=== PATIENT | female | born 1950 | race Caucasian/White ===

== ENCOUNTER → 2016-09-27 | Outpatient (CLI) | payer MEDICARE ==
--- NOTE | 2016-09-28 11:23 | MM ---
Reason for exam: screening (asymptomatic). Last mammogram was performed 1 year and 2 months ago. History: Patient is postmenopausal. Took unspecified hormones for 10 years beginning at age 45. Physical Findings: A clinical breast exam by your physician is recommended on an annual basis and results should be correlated with mammographic findings. MG 3D Screening Mammo W/Cad Bilateral CC and MLO view(s) were taken. Prior study comparison: August 04, 2015, bilateral MG 3d screening mammo w/cad. July 05, 2014, bilateral MG screening mammo w CAD. There are scattered fibroglandular densities. Benign calcifications. No significant changes when compared with prior studies. ASSESSMENT: Benign, BI-RAD 2 RECOMMENDATION: Routine screening mammogram of both breasts in 1 year.
== END | disposition home or self-care (01) ==
LOC: RADMAMWWP 07:44
PROVIDERS: ATTEND Internal Medicine
DX: Z12.31 Encounter for screening mammogram for malignant neoplasm of breast (principal)
CPT/HCPCS: 77063; G0202

== ENCOUNTER → 2017-02-07 | Outpatient (CLI) | payer MEDICARE ==
[2017-02-07 08:50] LABS: Blood Urea Nitrogen 12 mg/dL (7-17); Non-African American GFR(MDRD) >60 (>60 ml/min/1.73 sqM)
--- NOTE | 2017-02-07 11:53 | CT ---
EXAMINATION TYPE: CT abdomen pelvis w con DATE OF EXAM: 02/07/2017 COMPARISON: 03/27/2010 INDICATION: LLQ pain DLP: 583.6 mGycm, Automated exposure control for dose reduction was used. CONTRAST: 100 mL of Omnipaque 300. Study performed with Oral Contrast TECHNIQUE: Axial images were obtained from above the diaphragm to the pubic rami in the axial plane a t 5 mm thick sections. Reconstructed images are reviewed on the computer in the coronal plane. FINDINGS: Limited CT sections are obtained the lung bases. Some minimal linear opacities at the lung bases may be related to some mild compressive atelectasis. Small hiatal hernia is present. Postsurgical change s are within the stomach.. CT ABDOMEN: Liver: Normal Spleen: Normal Pancreas: Mildly atrophic Adrenal glands: The adrenal glands are normal. Gallbladder: Normal Kidneys: No masses are evident. No hydronephrosis is present. There is a 1.2 cm cyst on the mid pos terior right kidney. Delayed images were obtained through the kidneys, which remain unremarkable. Aorta: Normal Retroaortic renal vein may be present. Inferior vena cava: Filter is within the inferior vena cava. CT PELVIS: Loops of bowel within the abdomen and pelvis are normal. Note is made of some bowel surgery withi n the left midabdomen. Oral contrast extends to the descending colon. Loops of bowel distended with o ral contrast appear within normal limits. There is incomplete distention of the sigmoid colon. Divert icular changes without acute diverticulitis is present. Appendix: Normal as visualized. Urinary bladder: Normal. Genitourinary structures: Uterus is not identified. Adnexal regions appear within normal limits. Osseous structures: No suspicious lytic or sclerotic lesions. IMPRESSIONS: 1. Diverticulosis without acute diverticulitis. 2. Right renal cyst.
== END | disposition home or self-care (01) ==
LOC: RADCTMAIN 08:11
PROVIDERS: ATTEND Internal Medicine
DX: N28.1 Cyst of kidney, acquired (principal); K57.90 Diverticulosis of intestine, part unspecified, without perforation or abscess without bleeding
CPT/HCPCS: 82565; 84520; 74177; Q9967

== ENCOUNTER 2018-03-21 10:49 | Day surgery (SDC) | payer MEDICARE ==
[2018-03-16 11:12] VITALS: BMI 30.8
[~2018-03-21 10:49] MED LIST: LACTATED RINGERS 1,000 ML IV SCH; LIDOCAINE 1% 20 ML VIAL (10MG/ML) FOR IV START INTRADERMA PRN; MIDAZOLAM 2 MG/2 ML VIAL IV PRN
[2018-03-21 11:14] VITALS: TEMP 97.4
[2018-03-21] MEDS ORDERED: PROPOFOL 10 MG/ML 20 ML VIAL IV ONE (11:50)
[2018-03-21 12:19] VITALS: RESP 18
--- NOTE | 2018-03-21 12:22 | P.PCN ---
Date of Procedure: 03/21/18 Procedure(s) Performed: Procedure: Esophagogastroduodenoscopy and biopsy. Preoperative diagnosis: Iron deficiency anemia. Postoperative diagnosis: 1. 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 2. Biopsies obtained from the small bowel, gastric remnant and esophagus. Preparation sedation: Was provided by anesthesia. Brief clinical history: The patient is a 67-year-old female who is scheduled for this evaluation because of iron deficiency anemia. The patient had prior Bryan-en-Y gastric bypass surgery. She has no overt of bleeding. Her last colonoscopy was 1-2 years ago. Procedure: With the patient on her left lateral decubitus position and after informed consent and adequate sedation, I passed the Olympus-GIF 160 video upper endoscope through the cricopharyngeus down the esophagus. GE junction was around 35-36 cm from the incisors. The esophagus did not show any obvious erosions, ulcers, strictures or Houston's esophagus. The endoscope was then passed into the gastric remnant as the patient had prior gastric bypass surgery. The endoscope was then passed for a good distance into the small bowel. The suture line was noted and couple sutures were seen. The gastric remnant showed some erythema and friability and there was an erosion or 2 close to the sutures but there was no spontaneous bleeding. Small bowel appeared healthy. All secretions encountered were clear. I obtained multiple biopsies from the small bowel, gastric remnant and esophagus then the endoscope was withdrawn. The patient tolerated the procedure well. Plan: The patient was reassured. Will await biopsy results. It is possible that a significant component of her anemia is related to her bypass surgery and the decrease in iron absorption. A smaller component could be related to her gastritis of the gastric remnant as described. She will follow-up with you as planned and I will be happy to see in the office if the problem persists.
[2018-03-21 12:47] VITALS: BP 127/69; PULSE 49
== END 2018-03-21 13:02 | disposition home or self-care (01) ==
LOC: ORWHC2ENDO 10:49
DX: K29.50 Unspecified chronic gastritis without bleeding (principal); Z98.84 Bariatric surgery status; D50.9 Iron deficiency anemia, unspecified; E07.9 Disorder of thyroid, unspecified; M19.90 Unspecified osteoarthritis, unspecified site; Z79.890 Hormone replacement therapy; Z79.891 Long term (current) use of opiate analgesic; Z91.048 Other nonmedicinal substance allergy status
CPT/HCPCS: 88305; 88342; 88341; 43239; J2704

== ENCOUNTER → 2018-06-12 | Outpatient (CLI) | payer MEDICARE ==
--- NOTE | 2018-06-14 10:48 | MM ---
Reason for exam: screening (asymptomatic). Last mammogram was performed 1 year ago. History: Patient is postmenopausal. Took unspecified hormones for 10 years beginning at age 45. Physical Findings: A clinical breast exam by your physician is recommended on an annual basis and results should be correlated with mammographic findings. MG 3D Screening Mammo W/Cad Bilateral CC and MLO view(s) were taken. XCCL view(s) were taken of the left breast. Prior study comparison: June 09, 2017, left breast MG 3d diag mammo w/cad LT. September 27, 2016, bilateral MG 3d screening mammo w/cad. There are scattered fibroglandular densities. No significant changes when compared with prior studies. ASSESSMENT: Benign, BI-RAD 2 RECOMMENDATION: Routine screening mammogram of both breasts in 1 year.
== END ==
LOC: RADMAMWWP 13:15
PROVIDERS: ATTEND Internal Medicine
DX: Z12.31 Encounter for screening mammogram for malignant neoplasm of breast (principal)
CPT/HCPCS: 77063; 77067

== ENCOUNTER → 2018-07-05 | Outpatient (CLI) | payer MEDICARE ==
[2018-07-05 09:58] LABS: Basophils # (A) 0.1 k/uL (0-0.2); Basophils % (A) 1 %; Eosinophils # (A) 0.1 k/uL (0-0.7); Eosinophils % (A) 1 %; HCT 42.3 % (34.0-46.0); HGB 13.5 gm/dL (11.4-16.0); Lymphocytes % (A) 30 %; MCH 29.7 pg (25.0-35.0); MCHC 31.9 g/dL (31.0-37.0); MCV 93.3 fL (80.0-100.0); Mean Platelet Volume 7.5; Monocytes # (A) 0.3 k/uL (0-1.0); Monocytes % (A) 4 %; Neutrophils # (A) 4.1 k/uL (1.3-7.7); Neutrophils % (A) 63 %; Platelet Count 227 k/uL (150-450); RBC 4.54 m/uL (3.80-5.40); RDW 14.9 % (11.5-15.5); WBC 6.6 k/uL (3.8-10.6)
[2018-07-05 16:18] LABS: Albumin 4.3 g/dL (3.80-4.90); Albumin/Globulin Ratio 1.87 (1.20-2.10); Anion Gap 6.5 mmol/L (4.00-12.00); Calcium 9.5 mg/dL (8.7-10.3); Carbon Dioxide 27.5 mmol/L (21.6-31.8); Globulin 2.3 g/dL (2.1-3.7); Potassium 4.3 mmol/L (3.5-5.5); Total Bilirubin 0.3 mg/dL (0.2-1.2); Total Protein 6.6 g/dL (6.2-8.2)
[2018-07-05 17:39] LABS: Hemoglobin A1C 5.8 % (4.0-6.0)
== END ==
LOC: LABWHC1 08:35
PROVIDERS: ATTEND Internal Medicine
DX: E03.9 Hypothyroidism, unspecified (principal); E55.9 Vitamin D deficiency, unspecified; E56.0 Deficiency of vitamin E; R73.09 Other abnormal glucose; Z13.6 Encounter for screening for cardiovascular disorders
CPT/HCPCS: 36415; 80053; 80061; 82306; 83036; 84443; 84446; 85025

== ENCOUNTER → 2018-07-07 | Outpatient (CLI) | payer MEDICARE ==
--- NOTE | 2018-07-07 15:19 | BD ---
EXAMINATION TYPE: Axial Bone Density DATE OF EXAM: 07/07/2018 COMPARISON: NONE CLINICAL HISTORY: Height: 64 Weight: 167.4 FRAX RISK QUESTIONS: Alcohol (3 or more units per day): no Family History (Parent hip fracture): no Glucocorticoids (More than 3mos): no (Ex: prednisone, prednisolone, methylprednisolone, dexamethasone, and hydrocortisone). History of Fracture in Adulthood: yes Secondary Osteoporosis: 1. Type 1 Diabetes: no 2. Hyperthyroidism: no 3. Menopause before 45: yes 4. Malnutrition: no 5. Chronic liver disease: no Rheumatoid Arthritis: no Current Tobacco Use: no RISK FACTORS HISTORY OF: Family History of Osteoporosis: no Active: no Diet low in dairy products/other sources of calcium: yes Postmenopausal woman: around age 42 Lost more than 2 inches in height since high school: no MEDICATIONS: tramadol Additional History: EXAM MEASUREMENTS: Bone mineral densitometry was performed using the orderbolt System. Bone mineral density as measured about the Lumbar spine is: ----- L1-L4(G/cm2): 0.957 T Score Values are as follows: ----- L2: -2.0 ----- L3: -1.5 ----- L4: -1.6 ----- L1-L4: -1.9 Bone mineral density has changed 0 % since study of: 07.05.2016 Bone mineral density about the R hip (g/cm2): 0.756 Bone mineral density about the L hip (g/cm2): 0.742 T Score values are as follows: -----R Neck: -2.0 -----L Neck: -2.1 -----R Total: -2.0 -----L Total: -1.9 Bone mineral density has: decreased -2.9 % since study of: 07.05.2016 IMPRESSION: Osteopenia NOTE: T-SCORE=SD OF THE YOUNG ADULT MEAN.
== END | disposition home or self-care (01) ==
LOC: RADBDWWP 13:08
PROVIDERS: ATTEND Internal Medicine
DX: M85.851 Other specified disorders of bone density and structure, right thigh (principal); M85.852 Other specified disorders of bone density and structure, left thigh; M85.88 Other specified disorders of bone density and structure, other site
CPT/HCPCS: 77080

== ENCOUNTER → 2018-07-21 | Outpatient (CLI) | payer MEDICARE ==
--- NOTE | 2018-07-21 16:02 | US ---
EXAMINATION TYPE: US abdomen limited DATE OF EXAM: 07/21/2018 COMPARISON: NONE CLINICAL HISTORY: R94.5 Abn liver function test. Elevated liver enzymes EXAM MEASUREMENTS: Liver Length: 15.5 cm Gallbladder Wall: 0.34 cm CBD: 0.5 cm Right Kidney: 10.2 x 4.7 x 4.4 cm Technical limitations due to large amount of overlying bowel content Pancreas: Obscured by bowel gas Liver: best visualized intercostally, appears wnl as visualized Gallbladder: no evidence of stones Evidence for sonographic Walton's sign: no CBD: appears wnl Right Kidney: cystic area = 1.1 x 1.2 x 1.5cm IMPRESSION: 1. Hydropic gallbladder with thickening of the gallbladder wall 0.34 cm. Normal less than 0.3 cm. Cli nical correlation recommended for cholecystitis. 2. Upper renal cortex simple appearing cyst.
== END | disposition home or self-care (01) ==
LOC: RADUSWWP 07:32
PROVIDERS: ATTEND Internal Medicine
DX: K82.8 Other specified diseases of gallbladder (principal)
CPT/HCPCS: 76705

== ENCOUNTER → 2019-10-04 | Outpatient (CLI) | payer MEDICARE ==
--- NOTE | 2019-10-04 11:41 | US ---
EXAMINATION TYPE: US venous doppler duplex LE RT DATE OF EXAM: 10/04/2019 11:29 AM COMPARISON: NONE CLINICAL HISTORY: M79.661 pain in rt leg, R22.41 swelling. Patient c/o right thigh anterior and media l pain, and right groin pain; had prior excess skin removed upper thigh 2005 due to weight loss. SIDE PERFORMED: TECHNIQUE: The lower extremity deep venous system is examined utilizing real time linear array sonog chepe with graded compression, doppler sonography and color-flow sonography. VESSELS IMAGED: Common Femoral Vein Deep Femoral Vein Greater Saphenous Vein * Femoral Vein Popliteal Vein Small Saphenous Vein * Proximal Calf Veins (* superficial vessels) Right Leg: Negative for DVT. Multiple right groin lymph nodes seen with largest = 2.6 x 1.6 x 1.0cm. No pseudoaneurysm or hematoma is evident. IMPRESSION: 1. Right lower extremity ultrasound negative for deep venous thrombosis. 2. Multiple prominent right inguinal lymph nodes.
== END | disposition home or self-care (01) ==
LOC: RADUSWWP 11:03
PROVIDERS: ATTEND Internal Medicine
DX: R59.0 Localized enlarged lymph nodes (principal)

== ENCOUNTER → 2020-02-06 | Outpatient (CLI) | payer MEDICARE ==
--- NOTE | 2020-02-07 11:36 | MM ---
Reason for exam: screening (asymptomatic). Last mammogram was performed 1 year and 8 months ago. History: Patient is postmenopausal. Took unspecified hormones for 10 years beginning at age 45. Physical Findings: A clinical breast exam by your physician is recommended on an annual basis and results should be correlated with mammographic findings. MG 3D Screening Mammo W/Cad Bilateral CC and MLO view(s) were taken. XCCL view(s) were taken of the left breast. Prior study comparison: June 12, 2018, bilateral MG 3d screening mammo w/cad. June 09, 2017, left breast MG 3d diag mammo w/cad LT. There are scattered fibroglandular densities. Focal asymmetry lower central left breast posterior third position. This finding is changed when compared with previous exams. ASSESSMENT: Incomplete: need additional imaging evaluation, BI-RAD 0 RECOMMENDATION: Special view mammogram of the left breast. If lesion persists on supplemental views, image directed ultrasound is recommended. [facility] will attempt to contact patient to return for supplemental views and ultrasound if indicated.
== END | disposition home or self-care (01) ==
LOC: RADMAMWWP 08:44
PROVIDERS: ATTEND Internal Medicine
DX: Z12.31 Encounter for screening mammogram for malignant neoplasm of breast (principal)
CPT/HCPCS: 77063; 77067

== ENCOUNTER → 2020-02-15 | Outpatient (CLI) | payer MEDICARE ==
--- NOTE | 2020-02-15 14:32 | MM ---
Reason for exam: additional evaluation requested from abnormal screening. Last mammogram was performed less than 1 month ago. History: Patient is postmenopausal. Took unspecified hormones for 10 years beginning at age 45. Physical Findings: Nurse did not find any significant physical abnormalities on exam. MG 3D Work Up W/Cad LT Spot compression MLO and LM view(s) were taken of the left breast. Prior study comparison: February 06, 2020, bilateral MG 3d screening mammo w/cad. June 12, 2018, bilateral MG 3d screening mammo w/cad. These results were verbally communicated with the patient and result sheet given to the patient on 02/15/20. ASSESSMENT: Probably benign, BI-RAD 3 RECOMMENDATION: Follow-up diagnostic mammogram of the left breast in 6 months.
== END | disposition home or self-care (01) ==
LOC: RADMAMWWP 13:23
PROVIDERS: ATTEND Internal Medicine
DX: R92.8 Other abnormal and inconclusive findings on diagnostic imaging of breast (principal)
CPT/HCPCS: 77065; G0279; 77061

== ENCOUNTER → 2020-05-20 | Outpatient (CLI) | payer MEDICARE ==
--- NOTE | 2020-05-21 07:55 | CT ---
EXAMINATION TYPE: CT lumbar spine wo con DATE OF EXAM: 05/20/2020 COMPARISON: None HISTORY: low back pain following heacy lifting CT DLP: 545.[address] of the lumbar spine was performed. Bone and soft tissue window settings are submitted as well as coronal and sagittal reconstructions. L1-L2: Moderate degenerative disc space narrowing with posterior disc bulge. Mild effacement ventral thecal sac. No evidence for disc herniation or protrusion. No central stenosis or foraminal encroachm ent. L2-L3: Moderate degenerative disc space narrowing with posterior disc bulge. Mild effacement ventral thecal sac. No evidence for disc herniation or protrusion. No central stenosis or foraminal encroachm ent. L3-L4: Moderate degenerative disc space narrowing with posterior disc bulge. Mild effacement ventral thecal sac. No evidence for disc herniation or protrusion. No central stenosis or foraminal encroachm ent. L4-L5: Severe disc desiccation. Grade 1 anterolisthesis measuring 4 mm. Posterior disc bulge as well as hypertrophy of the ligamentum flavum and facet joint arthropathy resulting in moderate central delbert nosis. Bilateral foraminal encroachment identified. L5-S1: Severe disc desiccation. Posterior disc bulge with partial encapsulating spur resulting in dis c endplate complex. No central stenosis or disc herniation. Facet joint arthropathy resulting in righ t foraminal encroachment. No paraspinal masses are identified. Lumbar segments are free if fracture. Incidental bird's nest fi lter identified IMPRESSION: 1. Multilevel degenerative disc disease with central stenosis at L4-5. See above.
== END | disposition home or self-care (01) ==
LOC: RADCTMAIN 18:58
PROVIDERS: ATTEND Physical Medicine & Rehabilitation
DX: M48.061 Spinal stenosis, lumbar region without neurogenic claudication (principal); M47.817 Spondylosis without myelopathy or radiculopathy, lumbosacral region; M51.36 Other intervertebral disc degeneration, lumbar region
CPT/HCPCS: 72131

== ENCOUNTER → 2020-09-15 | Outpatient (CLI) | payer MEDICARE ==
--- NOTE | 2020-09-16 09:16 | MM ---
Reason for exam: follow-up at short interval from prior study. Last mammogram was performed 7 months ago. History: Patient is postmenopausal. Took unspecified hormones for 10 years beginning at age 45. Physical Findings: Nurse did not find any significant physical abnormalities on exam. MG 3D Diag Mammo W/Cad LT CC and MLO view(s) were taken of the left breast. Prior study comparison: February 15, 2020, left breast MG 3d work up w/cad LT. February 06, 2020, bilateral MG 3d screening mammo w/cad. There are scattered fibroglandular densities. The previous questioned focal asymmetric density does not persist. No significant new findings when compared with previous films. These results were verbally communicated with the patient and result sheet given to the patient on 09/15/20. ASSESSMENT: Negative, BI-RAD 1 RECOMMENDATION: Return to routine screening mammogram schedule for both breasts. Back on schedule for February 2021.
== END | disposition home or self-care (01) ==
LOC: RADMAMWWP 08-18 14:50
PROVIDERS: ATTEND Internal Medicine
DX: R92.8 Other abnormal and inconclusive findings on diagnostic imaging of breast (principal)
CPT/HCPCS: 77065; G0279; 77061

== ENCOUNTER → 2020-10-22 | Outpatient (CLI) | payer MEDICARE ==
--- NOTE | 2020-10-22 09:40 | XR ---
EXAMINATION TYPE: XR Hip Complete RT DATE OF EXAM: 10/22/2020 COMPARISON: NONE HISTORY: Pain TECHNIQUE: 2 views submitted FINDINGS: There is no evidence of erosive change or acute fracture. Hypertrophic change of the acetabulum on th e right. Vascular calcifications in pelvis. IMPRESSION: 1. No evidence of acute fracture or dislocation. Correlate for femoral acetabular impingement.
--- NOTE | 2020-10-22 09:42 | XR ---
EXAM TYPE: LUMBAR SPINE X RAY SERIES COMPARISON: NONE HISTORY: Pain TECHNIQUE: 4 views are submitted. FINDINGS: Alignment is anatomic. The pedicles are intact. The transverse processes are intact. There IVC javier ter and multilevel degenerative disc disease with facet arthropathy. Grade 1 anterolisthesis L4 on L5 . Surgical clips in the right upper quadrant. There is a deformity in the ICC filter. Seen at the lev el of L1. IMPRESSION: 1. Multilevel degenerative disc disease most marked at L4-5, L5-S1 and L1-L2 with severe facet arthro marshal involving the lower lumbar spine. 2. There appears to be a deformity of the left lateral margin of the IVC filter which should be corre lated clinically.
== END ==
LOC: RADXRMAIN 09:00
PROVIDERS: ATTEND Internal Medicine
DX: M51.36 Other intervertebral disc degeneration, lumbar region (principal); M25.551 Pain in right hip
CPT/HCPCS: 72100; 73502

== ENCOUNTER 2020-10-24 06:54 | Emergency (ER) | payer MEDICARE ==
[2020-10-24 07:03] VITALS: RESP 18
[2020-10-24] MEDS ORDERED: KETOROLAC 15 MG/ML 1 ML VIAL IVP STA (07:29)
[2020-10-24] MEDS ORDERED: HYDROmorphone 0.5 MG/0.5 ML SYRINGE IVP STA (07:29)
[2020-10-24] MEDS ORDERED: methylPREDNISolone SOD SUCCI 125 MG/2 ML VIAL IV STA (07:29)
--- NOTE | 2020-10-24 07:40 | ED ---
General Adult HPI - General Chief complaint: Back Pain/Injury Stated complaint: Spine pain, unable to move leg Time Seen by Provider: 10/24/20 07:00 Source: patient, RN notes reviewed, old records reviewed Mode of arrival: wheelchair Limitations: physical limitation - History of Present Illness Initial comments: This is a 70-year-old female who presents emergency department stating she fell down some steps landed on her butt on Tuesday morning. Patient had x-rays from her primary medical care. She was told they were all negative. Patient complains pain in her lower right back that radiates down her leg. Patient states the pain goes down the back of her leg and it feels like it's spasming. Patient denies any other injury. Patient denies any redness or swelling. Patient states she has full range of motion if she can overcome the pain. - Related Data Home Medications Medication Instructions Recorded Confirmed Blue Cit/Mag/D3/Zn/Biological Science Technician/Ez/Bor 2,000 mg PO DAILY 01/14/14 03/16/18 [Citracal-Vit D + Magnesium Tab] Levothyroxine Sodium [Synthroid] 100 mcg PO DAILY 01/14/14 03/16/18 Multivitamins, Thera [Multivitamin] 1 each PO DAILY 01/14/14 03/16/18 Cholecalciferol [Vitamin D3] 5,000 unit PO DAILY 03/25/15 03/16/18 Propylene Glycol/Peg 400/Pf 1 dropper BOTH EYES DAILY 03/16/18 03/16/18 [Systane 0.3-0.4% Eye Drops] Previous Rx's Medication Instructions Recorded traMADol HCl [Ultram] 50 mg PO Q6H PRN #20 tab 03/08/15 predniSONE [Deltasone] 40 mg PO DAILY #8 tab 10/24/20 Allergies Allergy/AdvReac Type Severity Reaction Status Date / Time nickel Allergy Unknown Verified 10/24/20 07:03 Review of Systems ROS Statement: Those systems with pertinent positive or pertinent negative responses have been documented in the HPI. ROS Other: All systems not noted in ROS Statement are negative. Past Medical History Past Medical History: Osteoarthritis (OA), Thyroid Disorder Additional Past Medical History / Comment(s): STATES CURRENT ANEMIA, DRY EYES History of Any Multi-Drug Resistant Organisms: None Reported Past Surgical History: Bariatric Surgery, Bladder Surgery, Hernia Repair, Joint Replacement, Orthopedic Surgery, Tubal Ligation Additional Past Surgical History / Comment(s): LEFT SHOULDER SX, cataract removal, lap band placement and removal, gastric bypass ([facility]) 2004 panniculectomy, radha knee replacement, skin removed from thighs and both arms. Past Anesthesia/Blood Transfusion Reactions: Motion Sickness, Postoperative Nausea & Vomiting (PONV) Past Psychological History: No Psychological Hx Reported Past Alcohol Use History: Occasional Past Drug Use History: None Reported - Past Family History Father Family Medical History: Prostate Disorder Brother(s) Family Medical History: Cancer General Exam - General Exam Comments Initial Comments: GENERAL Patient is well-developed and well-nourished. Patient is in mild distress. EYES Patient's pupils are equal and round. Extraocular motion is intact SKIN Unremarkable NEURO The patient is alert and oriented 3. Patient has normal strength and sensation. Patient has a straight leg raise test positive on the right. PYSCH Patient has normal interpersonal interactions. MUSCULOSKELETAL Patient can move all 4 extremities however it so painful on the right leg. Limitations: physical limitation Course Vital Signs 10/24/20 06:59 Temperature 98.1 F Pulse Rate 64 Respiratory 18 Rate Blood Pressure 130/71 O2 Sat by Pulse 96 Oximetry Medical Decision Making - Medical Decision Making I went back in the room to reevaluate the patient she was doing considerably better was able to move her right leg with only very minimal pain. Patient was able to ambulate without problem. Disposition Clinical Impression: Sciatica Disposition: HOME SELF-CARE Condition: Good Instructions (If sedation given, give patient instructions): Sciatica (ED) Prescriptions: predniSONE [Deltasone] 40 mg PO DAILY #8 tab Is patient prescribed a controlled substance at d/c from ED?: No Referrals: Gus Molina MD [Primary Care Provider] - 1-2 days Time of Disposition: 08:46
[2020-10-24 09:08] VITALS: BP 139/81; PULSE 97; TEMP 98
== END 2020-10-24 09:04 | disposition home or self-care (01) ==
LOC: EC 06:54
DX: M54.30 Sciatica, unspecified side (principal); W10.9XXA Fall (on) (from) unspecified stairs and steps, initial encounter; M19.90 Unspecified osteoarthritis, unspecified site; E07.9 Disorder of thyroid, unspecified; Z98.51 Tubal ligation status
CPT/HCPCS: 99283; 96374; 96375; J2930; J1885; J1170

== ENCOUNTER → 2021-01-01 | Outpatient (CLI) | payer MEDICARE ==
--- NOTE | 2021-01-01 11:09 | XR ---
Cervical spine HISTORY: Bilateral neck pain 5 views of the cervical spine There is multilevel facet arthropathy change. There is possibly a spinal curvature. Some foraminal en croachment is present on the left at C3-4, C4-5. Minimal anterolisthesis grade 1 C3-4, C2-3. This mil d loss of disc height present at C4-5, mild multilevel spondylosis. Cervical vertebral bodies show pr eserved height. Bone mineralization is reduced. Prevertebral soft tissues are normal. IMPRESSION: Degenerative disc disease, osteopenia, facet arthropathy.
== END | disposition home or self-care (01) ==
LOC: RADXRMAIN 10:38
PROVIDERS: ATTEND Internal Medicine
DX: M50.30 Other cervical disc degeneration, unspecified cervical region (principal); M85.88 Other specified disorders of bone density and structure, other site; M47.812 Spondylosis without myelopathy or radiculopathy, cervical region
CPT/HCPCS: 72050

== ENCOUNTER → 2021-02-13 | Outpatient (CLI) | payer MEDICARE ==
--- NOTE | 2021-02-17 11:15 | MM ---
Reason for exam: screening (asymptomatic). Last mammogram was performed 5 months ago. History: Patient is postmenopausal. Took unspecified hormones for 10 years beginning at age 45. Physical Findings: A clinical breast exam by your physician is recommended on an annual basis and results should be correlated with mammographic findings. MG 3D Screening Mammo W/Cad Bilateral CC and MLO view(s) were taken. Prior study comparison: September 15, 2020, left breast MG 3d diag mammo w/cad LT. February 15, 2020, left breast MG 3d work up w/cad LT. The breast tissue is heterogeneously dense. This may lower the sensitivity of mammography. Stable benign calcifications. There is no discrete abnormality. No significant changes when compared with prior studies. ASSESSMENT: Benign, BI-RAD 2 RECOMMENDATION: Routine screening mammogram of both breasts in 1 year.
== END | disposition home or self-care (01) ==
LOC: RADMAMWWP 14:55
PROVIDERS: ATTEND Internal Medicine
DX: Z12.31 Encounter for screening mammogram for malignant neoplasm of breast (principal); Z78.0 Asymptomatic menopausal state
CPT/HCPCS: 77063; 77067

== ENCOUNTER → 2021-03-18 | Outpatient (CLI) | payer MEDICARE ==
--- NOTE | 2021-03-19 08:50 | US ---
EXAMINATION TYPE: US kidneys/renal and bladder DATE OF EXAM: 03/18/2021 COMPARISON: CT 02/07/2017 CLINICAL HISTORY: 70-year-old female N39.0 UTI,R10.9 FLANK PAIN. TECHNIQUE: Multiple sonographic images of the kidneys and bladder are obtained. FINDINGS: EXAM MEASUREMENTS: Right Kidney: 10.4 x 5.0 x 5.7 cm Left Kidney: 10.6 x 5.5 x 5.4 cm Right Kidney: No hydronephrosis. A mid pole cyst is visualized measuring 1.6 cm Left Kidney: No hydronephrosis. Slight focal contour lobulation along the lateral upper to mid pole m easuring 2.2 cm. Three-month follow-up recommended to reassess this area. Bladder: wnl Bilateral Jets seen: Yes Normal Post Void Residual: Yes- emptied bladder completely IMPRESSION: 1. No hydronephrosis. 2. A benign 1.6 cm right renal cyst. 3. A subtle focal contour lobulation measuring 2.2 cm along the upper to mid pole of the left kidney. Three-month follow-up ultrasound recommended to exclude the possibility of a subtle early mass here. 4. No evidence for urinary retention.
== END | disposition home or self-care (01) ==
LOC: RADUSWWP 15:45
PROVIDERS: ATTEND Internal Medicine
DX: N28.1 Cyst of kidney, acquired (principal); N39.0 Urinary tract infection, site not specified
CPT/HCPCS: 76770

== ENCOUNTER → 2021-06-19 | Outpatient (CLI) | payer MEDICARE ==
--- NOTE | 2021-06-19 13:08 | US ---
EXAMINATION TYPE: US kidneys/renal and bladder DATE OF EXAM: 06/19/2021 COMPARISON: 03/18/2021 CLINICAL HISTORY: R68.89 Abdnormal Clinical Findings (poss mass). EXAM MEASUREMENTS: Right Kidney: 10.8x5.0x5.4 cm Left Kidney: 10.0x4.5x5.6 cm Right Kidney: Renal cyst measuring 1.4x1.4x1.6cm Left Kidney: No obvious mass seen, possible scarring seen mid. Bladder: wnl Bilateral Jets seen: Yes There is no evidence for hydronephrosis at this point in time. No nephrolithiasis is seen. No guilherme s are identified. The urinary bladder is anechoic. Bilateral ureteral jets are seen. IMPRESSION: No significant change since the prior exam. MR is more sensitive for renal mass.
== END | disposition home or self-care (01) ==
LOC: RADUSWWP 12:26
PROVIDERS: ATTEND Internal Medicine
DX: N28.1 Cyst of kidney, acquired (principal)
CPT/HCPCS: 76770

== ENCOUNTER → 2022-02-16 | Outpatient (CLI) | payer MEDICARE ==
--- NOTE | 2022-02-17 07:52 | MM ---
Reason for Exam: Screening (asymptomatic). Last screening mammogram was performed 12 month(s) ago. Patient History: Menarche at age 9. First Full-Term at age 17. Hysterectomy at age 39. Postmenopausal. Unspecified Hormone for 10 years from age 45 until age 55. Risk Values: Casi 5 year model risk: 1.4%. NCI Lifetime model risk: 3.4%. Prior Study Comparison: 02/15/2020 Left Diagnostic Mammogram, [facility]. 09/15/2020 Left Diagnostic Mammogram, [facility]. 02/13/2021 Bilateral Screening Mammogram, [facility]. Tissue Density: There are scattered fibroglandular densities. Findings: Analyzed By CAD. There is no suspicious group of microcalcifications or new suspicious mass in either breast. Overall Assessment: Negative, BI-RAD 1 Management: Screening Mammogram of both breasts in 1 year. A clinical breast exam by your physician is recommended on an annual basis and results should be correlated with mammographic findings. Electronically signed and approved by: Catalino Jason M.D. Radiologis
== END | disposition home or self-care (01) ==
LOC: RADMAMWWP 15:01
PROVIDERS: ATTEND Internal Medicine
DX: Z12.31 Encounter for screening mammogram for malignant neoplasm of breast (principal); Z78.0 Asymptomatic menopausal state
CPT/HCPCS: 77063; 77067

== ENCOUNTER 2022-11-20 07:00 | Emergency (ER) | payer MEDICARE ==
[2022-11-20 07:08] VITALS: RESP 16
[2022-11-20] MEDS ORDERED: traMADol 50 MG TAB PO STA (07:15)
--- NOTE | 2022-11-20 07:17 | ED ---
General Adult HPI - General Chief complaint: Extremity Injury, Lower Stated complaint: Fall Time Seen by Provider: 11/20/22 07:10 Source: patient, RN notes reviewed Mode of arrival: ambulatory Limitations: no limitations - History of Present Illness Initial comments: Patient is a pleasant 72-year-old female presenting to the emergency Department with right ankle injury. Patient states she fell last night. Patient inverted her right ankle. Episode occurred around 8 PM. Patient is only able take a few steps even with using her walker. No other area of injury or concern. No head injury or loss of consciousness. No history of previous injury to this area. - Related Data Home Medications Medication Instructions Recorded Confirmed Blue Cit/Mag/D3/Zn/Plasterer Spot/Ez/Bor 2,000 mg PO DAILY 01/14/14 03/16/18 [Citracal-Vit D + Magnesium Tab] Levothyroxine Sodium [Synthroid] 100 mcg PO DAILY 01/14/14 03/16/18 Multivitamins, Thera [Multivitamin] 1 each PO DAILY 01/14/14 03/16/18 Cholecalciferol [Vitamin D3] 5,000 unit PO DAILY 03/25/15 03/16/18 Propylene Glycol/Peg 400/Pf 1 dropper BOTH EYES DAILY 03/16/18 03/16/18 [Systane 0.3-0.4% Eye Drops] Previous Rx's Medication Instructions Recorded traMADol HCl [Ultram] 50 mg PO Q6H PRN #20 tab 03/08/15 predniSONE [Deltasone] 40 mg PO DAILY #8 tab 10/24/20 Allergies Allergy/AdvReac Type Severity Reaction Status Date / Time nickel Allergy Unknown Verified 10/24/20 07:03 Review of Systems ROS Statement: Those systems with pertinent positive or pertinent negative responses have been documented in the HPI. ROS Other: All systems not noted in ROS Statement are negative. Constitutional: Denies: fever Eyes: Denies: eye pain ENT: Denies: ear pain Respiratory: Denies: cough Cardiovascular: Denies: chest pain Endocrine: Denies: fatigue Gastrointestinal: Denies: abdominal pain Genitourinary: Denies: dysuria Musculoskeletal: Reports: as per HPI. Denies: back pain Skin: Denies: rash Neurological: Denies: headache Past Medical History Past Medical History: Osteoarthritis (OA), Thyroid Disorder Additional Past Medical History / Comment(s): STATES CURRENT ANEMIA, DRY EYES History of Any Multi-Drug Resistant Organisms: None Reported Past Surgical History: Bariatric Surgery, Bladder Surgery, Hernia Repair, Joint Replacement, Orthopedic Surgery, Tubal Ligation Additional Past Surgical History / Comment(s): LEFT SHOULDER SX, cataract removal, lap band placement and removal, gastric bypass ([facility]) 2005 panniculectomy, radha knee replacement, skin removed from thighs and both arms. Past Anesthesia/Blood Transfusion Reactions: Motion Sickness, Postoperative Nausea & Vomiting (PONV) Past Psychological History: No Psychological Hx Reported Smoking Status: Never smoker Past Alcohol Use History: Occasional Past Drug Use History: None Reported - Past Family History Father Family Medical History: Prostate Disorder Brother(s) Family Medical History: Cancer General Exam Limitations: no limitations General appearance: alert, in no apparent distress Head exam: Present: atraumatic, normocephalic Eye exam: Present: normal appearance Neck exam: Present: normal inspection. Absent: tenderness Respiratory exam: Present: normal lung sounds bilaterally Cardiovascular Exam: Present: regular rate, normal rhythm Expanded Peripheral pulses: 2+: Posterior Tibialis (R), Dorsalis Pedis (R) GI/Abdominal exam: Present: soft. Absent: tenderness Extremities exam: Present: tenderness (Moderate tenderness and moderate swelling right lateral malleolus. No other area of bony tenderness or distally the extremity is neurovascular intact.). Absent: calf tenderness Back exam: Present: normal inspection. Absent: tenderness Neurological exam: Present: alert. Absent: motor sensory deficit Psychiatric exam: Present: normal affect, normal mood Skin exam: Present: normal color Course Vital Signs 11/20/22 07:03 Temperature 98.1 F Pulse Rate 79 Respiratory 16 Rate Blood Pressure 128/75 O2 Sat by Pulse 99 Oximetry Procedures - Orthopedic Splinting/Casting Injury #1 Side: right Lower Extremity Injury Location: short leg Lower Extremity Immobilizer: stirrup splint Medical Decision Making - Medical Decision Making Was pt. sent in by a medical professional or institution (, PA, HAND BOOTMAKER, urgent care, hospital, or prison...) When possible be specific @ -No Did you speak to anyone other than the patient for history (EMS, parent, family, police, friend...)? What history was obtained from this source @ -No Did you review nursing and triage notes (agree or disagree)? Why? @ -I reviewed and agree with nursing and triage notes Were old charts reviewed (outside hosp., previous admission, EMS record, old EKG, old radiological studies, urgent care reports/EKG's, prison records)? Report findings @ -No old charts were reviewed Differential Diagnosis (chest pain, altered mental status, abdominal pain women, abdominal pain men, vaginal bleeding, weakness, fever, dyspnea, syncope, heada hossein, dizziness, GI bleed, back pain, seizure, CVA, palpatations, mental health)? @ -not applicable EKG interpreted by me (3pts min.). @ -As above X-rays interpreted by me (1pt min.). @ -X-ray right ankle shows nondisplaced lateral malleolus fracture CT interpreted by me (1pt min.). @ -None done U/S interpreted by me (1pt. min.). @ -None done What testing was considered but not performed or refused? (CT, X-rays, U/S, labs)? Why? @ -None What meds were considered but not given or refused? Why? @ -None Did you discuss the management of the patient with other professionals (professionals i.e. , PA, HAND BOOTMAKER, lab, RT, psych nurse, social insurance analyst, director of construction, teacher, chief digital officer, insurance case manager)? Give summary @ -No Was smoking cessation discussed for >3mins.? @ -No Was critical care preformed (if so, how long)? @ -No Were there social determinants of health that impacted care today? How? (Homelessness, low income, unemployed, alcoholism, drug addiction, transportation, low edu. Level, literacy, decrease access to med. care, senior care, rehab)? @ -No Was there de-escalation of care discussed even if they declined (Discuss DNR or withdrawal of care, Hospice)? DNR status @ -No What co-morbidities impacted this encounter? (DM, HTN, Smoking, COPD, CAD, Cancer, CVA, ARF, Chemo, Hep., AIDS, mental health diagnosis, sleep apnea, morbid obesity)? @ -None Was patient admitted / discharged? Hospital course, mention meds given and route, prescriptions, significant lab abnormalities, going to OR and other perti nent info. @ -Patient was splinted. Patient updated on results and need for follow-up with orthopedics. Patient will be discharged. Patient does have Ultram at home for pain. Undiagnosed new problem with uncertain prognosis? @ -No Drug Therapy requiring intensive monitoring for toxicity (Heparin, Nitro, Insulin, Cardizem)? @ -No Were any procedures done? @ -Splinting, see above Diagnosis/symptom? @ -Ankle fracture Acute, or Chronic, or Acute on Chronic? @ -Acute Uncomplicated (without systemic symptoms) or Complicated (systemic symptoms)? @ -default Side effects of treatment? @ -No Exacerbation, Progression, or Severe Exacerbation? @ -No Poses a threat to life or bodily function? How? (Chest pain, USA, [place], pneumonia, PE, COPD, DKA, ARF, appy, cholecystitis, CVA, Diverticulitis, Homicidal, Suicidal, threat to staff... and all critical care pts) @ -No Disposition Clinical Impression: Ankle fracture Disposition: HOME SELF-CARE Condition: Stable Instructions (If sedation given, give patient instructions): Ankle Fracture (ED) Additional Instructions: Please do follow-up with primary care physician as well as orthopedics in the next couple of days for recheck. You will need further protection. Ankle. Use your walker. Ice to affected area. Continue with Ultram or Tylenol as needed. Return for increased pain, swelling, foot problems, worsening or change in symptoms or other concerns. Is patient prescribed a controlled substance at d/c from ED?: No Referrals: Gus Molina MD [Primary Care Provider] - 1-2 days Daryl Felipe DO [Doctor of Osteopathic Medicine] - 1-2 days Time of Disposition: 07:46
--- NOTE | 2022-11-20 07:33 | XR ---
EXAMINATION TYPE: XR ankle complete RT DATE OF EXAM: 11/20/2022 COMPARISON: NONE HISTORY: Fall TECHNIQUE: Frontal, lateral and oblique images of the right ankle are obtained. COMPARISON: None. FINDINGS: Nondisplaced acute fracture of the lateral malleolus tip. The joint spaces appear within n ormal limits. Mild soft tissue swelling of the ankle. Posterior and plantar calcaneal enthesophytes n oted. IMPRESSION: Acute nondisplaced fracture of the lateral malleolus surrounding soft tissue swelling.
[2022-11-20 07:58] VITALS: BP 124/81; PULSE 75; TEMP 98
== END 2022-11-20 08:00 | disposition home or self-care (01) ==
LOC: EC 07:00
DX: S82.91XA Unspecified fracture of right lower leg, initial encounter for closed fracture (principal); M19.90 Unspecified osteoarthritis, unspecified site; E07.9 Disorder of thyroid, unspecified; Z91.048 Other nonmedicinal substance allergy status; Z79.890 Hormone replacement therapy; Z79.899 Other long term (current) drug therapy; W18.30XA Fall on same level, unspecified, initial encounter; Y92.000 Kitchen of unspecified non-institutional (private) residence as the place of occurrence of the external cause
CPT/HCPCS: 29515; 99284

== ENCOUNTER → 2022-12-03 | Outpatient (CLI) | payer MEDICARE ==
--- NOTE | 2022-12-03 11:30 | BD ---
EXAMINATION TYPE: Axial Bone Density DATE OF EXAM: 12/03/2022 CLINICAL HISTORY: 72 years old Female. ICD-10 CODE: M85.88 OTHER DISORDER OF BONE DENSITY N95.1 POST MENOPAUSAL Comparison: Prior DEXA bone scan 2017. Height: 63 Weight: 156 FRAX RISK QUESTIONS: Glucocorticoids (More than 3mos): yes (Ex: prednisone, prednisolone, methylprednisolone, dexamethasone, and hydrocortisone). History of Fracture in Adulthood: yes Secondary Osteoporosis: yes 3. Menopause before 45: yes 4. Malnutrition: total, y gastric bypass, nutrient deficient RISK FACTORS HISTORY OF: hx of multiple fxs, lt shoulder, 2017 , rt shoulder, 2018, sacrum and coccyx, rt ankle 2022, rt wrist History of Wrist Fracture: yes. rt wrist at 44yrs old no surgeries but hx of lumbar injections, Postmenopausal woman: yes at age 43 yrs old, total hyst Take estrogen and/or progesterone medications: yes in the past for about 2 yrs Frequent falls: yes Hyperparathyroidism: no Adrenal Insufficiency: no MEDICATIONS: Prednisone or other steroids: yes, for pain and illness, often Thyroid Medications: yes, for about 30+ yrs, synthroid Additional Medications: vit d and calcium, Additional History: total gastric bypass 20 yrs ago, bilat TKRs, arthritis, multiple fxs, EXAM MEASUREMENTS: Bone mineral densitometry was performed using the [employer] System. Bone mineral density as measured about the Lumbar spine is: ----- L1-L4(G/cm2): 0.961 T Score Values are as follows: ----- L1: -1.8 ----- L2: -2.7 ----- L3: -2.0 ----- L4: -1.3 ----- L1-L4: -1.8 Z Score Values are as follows: ----- L1: -0.3 ----- L2: -1.2 ----- L3: -0.4 ----- L4: 0.3 ----- L1-L4: -0.3 Bone mineral density has: Decreased -0.2% since study of: 8....07.07.2018 study unavailable Bone mineral density about the R hip (g/cm2): 0.686 Bone mineral density about the L hip (g/cm2): 0.665 T Score values are as follows: -----R Neck: -0.7 -----L Neck: -2.5 -----R Total: -2.6 -----L Total: -2.7 Z Score values are as follows: -----R Neck: 1.1 -----L Neck: -0.7 -----R Total: -1.0 -----L Total: -1.2 Bone mineral density has: Decreased -13.8% since study of: 07.05.2014 FRAX%s: The graph provided illustrates a 22.4% chance for a major osteoporotic fx and a 7.3% chance f or the hips probability for fx in 10 years time. IMPRESSION: Osteopenia (T Score between -2.5 and -1) remains present. There is slightly increased risk of fracture and the patient may be considered for treatment. Re-Screen 2-5 years. NOTE: T-SCORE=SD OF THE YOUNG ADULT MEAN.
== END | disposition home or self-care (01) ==
LOC: RADBDWWP 09:56
PROVIDERS: ATTEND Internal Medicine
DX: M81.0 Age-related osteoporosis without current pathological fracture (principal); M85.89 Other specified disorders of bone density and structure, multiple sites; N95.1 Menopausal and female climacteric states
CPT/HCPCS: 77080

== ENCOUNTER 2023-06-08 18:15 | Emergency (ER) | payer MEDICARE ==
--- NOTE | 2023-06-08 18:48 | ED ---
Fall HPI - General Source: patient Mode of arrival: ambulatory <Jordan Collado - Last Filed: 06/08/23 18:48> <Ta Rea - Last Filed: 06/10/23 05:18> - General Chief Complaint: Fall Stated Complaint: Fall,Hit Head, NO thinners - History of Present Illness Initial Comments: 73-year-old female presenting to the ED with a chief complaint of fall. Patient states that she was helping her friend move furniture when she lost her balance and fell backwards. Patient does report that she did hit her head however there is no LOC. Now notes pain of the neck and the left shoulder. Patient is not on blood thinners. (Jordan Collado) 73-year-old female presenting with chief complaint of fall from standing. Patient was trying to move her bed frame today when she slipped and fell hitting her head against the wall. She is complaining of left arm pain, mainly was in the left forearm. Patient denies any loss of consciousness or blood thinners. Patient admits to a large and painful bump to the back of the head. No chest pain, difficulty breathing, numbness, tingling, weakness, dizziness, nausea, vomiting, vision or hearing changes. (Ta Rea) - Related Data Home Medications Medication Instructions Recorded Confirmed Blue Cit/Mag/D3/Zn/Sandblaster Glass/Ez/Bor 2,000 mg PO DAILY 01/14/14 03/16/18 [Citracal-Vit D + Magnesium Tab] Levothyroxine Sodium [Synthroid] 100 mcg PO DAILY 01/14/14 03/16/18 Multivitamins, Thera [Multivitamin] 1 each PO DAILY 01/14/14 03/16/18 Cholecalciferol [Vitamin D3] 5,000 unit PO DAILY 03/25/15 03/16/18 Propylene Glycol/Peg 400/Pf 1 dropper BOTH EYES DAILY 03/16/18 03/16/18 [Systane 0.3-0.4% Eye Drops] Previous Rx's Medication Instructions Recorded traMADol HCl [Ultram] 50 mg PO Q6H PRN #20 tab 03/08/15 predniSONE [Deltasone] 40 mg PO DAILY #8 tab 10/24/20 Allergies Allergy/AdvReac Type Severity Reaction Status Date / Time nickel Allergy Unknown Verified 06/08/23 18:45 Review of Systems ROS Other: All systems not noted in ROS Statement are negative. <LonibasimJordan - Last Filed: 06/08/23 18:48> ROS Other: All systems not noted in ROS Statement are negative. <Ta eRa - Last Filed: 06/10/23 05:18> ROS Statement: Those systems with pertinent positive or pertinent negative responses have been documented in the HPI. Past Medical History Past Medical History: Osteoarthritis (OA), Thyroid Disorder Additional Past Medical History / Comment(s): STATES CURRENT ANEMIA, DRY EYES History of Any Multi-Drug Resistant Organisms: None Reported Past Surgical History: Bariatric Surgery, Bladder Surgery, Hernia Repair, Joint Replacement, Orthopedic Surgery, Tubal Ligation Additional Past Surgical History / Comment(s): LEFT SHOULDER SX, cataract removal, lap band placement and removal, gastric bypass ([facility]) 2005 panniculectomy, radha knee replacement, skin removed from thighs and both arms. Past Anesthesia/Blood Transfusion Reactions: Motion Sickness, Postoperative Nausea & Vomiting (PONV) Past Psychological History: No Psychological Hx Reported Smoking Status: Never smoker Past Alcohol Use History: Occasional Past Drug Use History: None Reported - Past Family History Father Family Medical History: Prostate Disorder Brother(s) Family Medical History: Cancer <LizzyemeraldJordan stallworth - Last Filed: 06/08/23 18:48> General Exam Limitations: no limitations General appearance: alert, in no apparent distress Extremities exam: Present: normal inspection, other (Ambulates without difficulty) Back exam: Present: normal inspection Neurological exam: Present: alert <LoniJordan stallworth - Last Filed: 06/08/23 18:48> Limitations: no limitations General appearance: alert, in no apparent distress Expanded Head exam: Present: hematoma Eye exam: Present: normal appearance, PERRL, EOMI. Absent: periorbital swelling Neck exam: Present: normal inspection, tenderness (Left-sided paraspinal muscle tenderness, no midline tenderness), full ROM Respiratory exam: Present: normal lung sounds bilaterally. Absent: respiratory distress, wheezes, rales, rhonchi, stridor Cardiovascular Exam: Present: regular rate, normal rhythm, normal heart sounds. Absent: systolic murmur, diastolic murmur, rubs, gallop, clicks Left Forearm Wrist exam: Present: tenderness, swelling. Absent: full ROM Vascular: Absent: vascular compromise Neurological exam: Present: alert, oriented X3 Expanded Patient oriented to: Present: person, place, time Speech: Present: fluid speech Cranial nerves: EOM's Intact: Normal Eye Response: (4) open spontaneously Motor Response: (6) obeys commands Verbal Response: (5) oriented [facility] Total: 15 Psychiatric exam: Present: normal affect, normal mood Skin exam: Present: warm, dry, intact, normal color. Absent: rash <Ta Rea - Last Filed: 06/10/23 05:18> Course Vital Signs 06/08/23 06/08/23 18:41 21:54 Temperature 98.3 F Pulse Rate 66 67 Respiratory 18 18 Rate Blood Pressure 99/77 152/90 O2 Sat by Pulse 98 95 Oximetry Medical Decision Making <Jordan Collado - Last Filed: 06/08/23 18:48> <Ta Rea - Last Filed: 06/10/23 05:18> - Medical Decision Making Quick note portion performed. Signed Jordan Collado PA-C (Jordan Collado) Was pt. sent in by a medical professional or institution (MICHAELA Bryan, SENIOR QUALITATIVE RESEARCHER, urgent care, hospital, or shelter...) When possible be specific @ -No Did you speak to anyone other than the patient for history (EMS, parent, family, police, friend...)? What history was obtained from this source @ -No Did you review nursing and triage notes (agree or disagree)? Why? @ -I reviewed and agree with nursing and triage notes Were old charts reviewed (outside hosp., previous admission, EMS record, old EKG, old radiological studies, urgent care reports/EKG's, shelter records)? Report findings @ -No old charts were reviewed Differential Diagnosis (chest pain, altered mental status, abdominal pain women, abdominal pain men, vaginal bleeding, weakness, fever, dyspnea, syncope, headache, dizziness, GI bleed, back pain, seizure, CVA, palpatations, mental health, musculoskeletal)? @ -Differential Musculoskeletal Muscular strain, contusion, ligament sprain, fracture, arthritis, septic arthritis, bursitis, cellulitis, muscle spasm, nerve compression, DVT, arterial occlusion, herpes zoster, electrolyte abnormality, tumor.... This is not meant to be in all inclusive list EKG interpreted by me (3pts min.). @ -As above X-rays interpreted by me (1pt min.). @ -Transverse fracture distal metaphyseal radius. Ulnar styloid for hypertension. Negative shoulder x-ray. CT interpreted by me (1pt min.). @ -No acute intracranial process or cervical spine fracture U/S interpreted by me (1pt. min.). @ -None done What testing was considered but not performed or refused? (CT, X-rays, U/S, labs)? Why? @ -None What meds were considered but not given or refused? Why? @ -None Did you discuss the management of the patient with other professionals (professionals i.e. , PA, SENIOR QUALITATIVE RESEARCHER, lab, RT, psych nurse, social media coordinator, home mortgage disclosure act specialist, teacher, technology officer, pillowcase sewer)? Give summary @ -No Was smoking cessation discussed for >3mins.? @ -No Was critical care preformed (if so, how long)? @ -No Were there social determinants of health that impacted care today? How? (Homelessness, low income, unemployed, alcoholism, drug addiction, transportation, low edu. Level, literacy, decrease access to med. care, long term, rehab)? @ -No Was there de-escalation of care discussed even if they declined (Discuss DNR or withdrawal of care, Hospice)? DNR status @ -No What co-morbidities impacted this encounter? (DM, HTN, Smoking, COPD, CAD, Cancer, CVA, ARF, Chemo, Hep., AIDS, mental health diagnosis, sleep apnea, morbid obesity)? @ -None Was patient admitted / discharged? Hospital course, mention meds given and route, prescriptions, significant lab abnormalities, going to OR and other pertinent info. @ -73-year-old female presenting with chief complaint of fall from standing. Admits the head injury, no loss of consciousness or blood thinners. Negative CT of the brain and cervical spine. Patient has a transverse fracture of the distal radius and styloid avulsion fracture. Associated tongue splint and instructed to follow up with orthopedics, she has previously seen Dr. Palma and will call his office in the morning.Follow-up with PCP. Report back to ER with any new or worsening symptoms. Discussed return parameters and answered all questions. Patient conveyed verbal understanding and agreed to the plan. I discussed this case in detail with my attending Dr. Vaz Undiagnosed new problem with uncertain prognosis? @ -No Drug Therapy requiring intensive monitoring for toxicity (Heparin, Nitro, Insulin, Cardizem)? @ -No Were any procedures done? @ -No Diagnosis/symptom? @ -Wrist fracture Acute, or Chronic, or Acute on Chronic? @ -Acute Uncomplicated (without systemic symptoms) or Complicated (systemic symptoms)? @ -Uncomplicated Side effects of treatment? @ -No Exacerbation, Progression, or Severe Exacerbation? @ -No Poses a threat to life or bodily function? How? (Chest pain, [place], [place], pneumonia, PE, COPD, DKA, ARF, appy, cholecystitis, CVA, Diverticulitis, Homicidal, Suicidal, threat to staff... and all critical care pts) @ -No (Ta Rea) Disposition <Jordan Collado - Last Filed: 06/08/23 18:48> Is patient prescribed a controlled substance at d/c from ED?: No Time of Disposition: 21:48 <Ta Rea - Last Filed: 06/10/23 05:18> Clinical Impression: Wrist fracture Disposition: HOME SELF-CARE Condition: Good Instructions (If sedation given, give patient instructions): Wrist Fracture in Adults (ED) Additional Instructions: Follow-up with PCP and orthopedics. Report back to ER with any new or worsening symptoms. Referrals: Gus Molina MD [Primary Care Provider] - 1-2 days Klaus Palma DO [Doctor of Osteopathic Medicine] - 1-2 days
[2023-06-08 19:04] VITALS: RESP 18; TEMP 98.3
--- NOTE | 2023-06-08 20:27 | XR ---
EXAMINATION TYPE: XR cervical spine comp DATE OF EXAM: 06/08/2023 COMPARISON: 01/01/2021 HISTORY: Fall, pain TECHNIQUE: 5 view cervical spine FINDINGS: Degenerative disc changes are present C4-5, C5-6, C6-7. Facet degenerative changes are note d. Mild foraminal narrowing is present at C5-6 on the left. Remaining foramen appear patent. Odontoid appears within normal limits as visualized. Prevertebral space is normal. Vertebral body heights are preserved. Posterior spinal lamellar line is intact. IMPRESSION: 1. No acute osseous abnormality cervical spine. 2. Degenerative disc changes mid cervical spine.
--- NOTE | 2023-06-08 21:21 | CT ---
EXAMINATION TYPE: CT brain daysi rodriguez DATE OF EXAM: 06/08/2023 COMPARISON: None HISTORY: pain after fall, bump on posterior head. CT DLP: 1442.70 mGycm, Automated exposure control for dose reduction was used. CONTRAST: Patient injected with 0 mL of Isovue 300. CT of the brain is performed utilizing 3 mm thick sections through the posterior fossa and 3 mm thick sections through the remaining calvarium. Study is performed within 24 hours of arrival to the hospital. No abnormal hyperdensity is present to suggest an acute intracranial hemorrhage. No mass lesion is evident. No acute infarcts are evident. Ventricles and sulci are appropriate for the patient age. There is a patent cavum septum pellucidum, normal variant. Paranasal sinuses and mastoid air cells within the [id number] are clear. IMPRESSIONS: 1. No acute intracranial process. Follow-up MRI can be performed as clinically indicated. CT cervical spine. COMPARISON: None CT of the cervical spine is performed in the axial plane at 2 mm thick sections. Reconstructed image s in the coronal, and sagittal plane are reviewed on the computer. No acute fractures are evident. Vertebral body alignment is normal. Posterior spinal lamellar line appears intact. Prevertebral spac e is normal. Disc space narrowing is present C4-5. Vertebral body heights are preserved. No spinal canal stenosis is evident. No neural foraminal stenosis is evident. IMPRESSION: 1. No acute osseous abnormality cervical spine
--- NOTE | 2023-06-08 21:21 | XR ---
EXAMINATION TYPE: XR shoulder complete LT DATE OF EXAM: 06/08/2023 COMPARISON: NONE HISTORY: Pain TECHNIQUE: Shoulder examined in 3 projections. FINDINGS: There is a open reduction internal fixation plate and screw repair of the proximal humerus. The humeral head articulates with the glenoid. The acromio-clavicular junction is normal. No acute fractures or dislocations are evident. A follow up study can be performed 7-10 days from acute trauma for continued pain. MRI can be perfor med if soft tissue evaluation would be of benefit. IMPRESSION: 1. No acute osseous shoulder abnormality.
--- NOTE | 2023-06-08 21:23 | XR ---
EXAMINATION TYPE: XR forearm LT DATE OF EXAM: 06/08/2023 COMPARISON: None HISTORY: Fall, pain TECHNIQUE: 2 view left forearm FINDINGS: There is a metaphyseal fracture of the distal radius. Ulnar styloid avulsion is likely pres ent. No additional fractures are evident. Anterior fat pad is normal. No elevation of posterior fat pad is evident. Soft tissue swelling is over the fracture site. Follow up exams can be performed for unexplained pain. IMPRESSION: 1. Transverse fracture distal metaphyseal radius. 2. Ulnar styloid avulsion
[2023-06-08 22:14] VITALS: BP 152/90; PULSE 67
== END 2023-06-08 21:56 | disposition home or self-care (01) ==
LOC: EC 18:15
DX: S52.592A Other fractures of lower end of left radius, initial encounter for closed fracture (principal); S52.612A Displaced fracture of left ulna styloid process, initial encounter for closed fracture; E07.9 Disorder of thyroid, unspecified; Z79.890 Hormone replacement therapy; Z88.8 Allergy status to other drugs, medicaments and biological substances; W01.190A Fall on same level from slipping, tripping and stumbling with subsequent striking against furniture, initial encounter
CPT/HCPCS: 70450; 72050; 72125; 99284

== ENCOUNTER → 2024-04-26 | Outpatient (CLI) | payer MEDICARE ==
--- NOTE | 2024-04-30 11:38 | MM ---
Reason for Exam: Screening (asymptomatic). Last mammogram was performed 2 year(s) and 2 month(s) ago. Patient History: Menarche at age 9. First Full-Term at age 17. Hysterectomy at age 39. Postmenopausal. Patient has history of breast feeding. Unspecified Hormone for 10 years from age 45 until age 55. Risk Values: Casi 5 year model risk: 1.4%. NCI Lifetime model risk: 3.0%. Prior Study Comparison: 09/15/2020 Left Diagnostic Mammogram, [facility]. 02/13/2021 Bilateral Screening Mammogram, [facility]. 02/16/2022 Bilateral MG 3D screening mammo w/cad, [facility]. Tissue Density: There are scattered areas of fibroglandular density. Findings: Analyzed By CAD. The pattern is symmetrical. Scattered benign calcifications are present bilaterally. Benign calcifications are present bilaterally. No suspicious groups of microcalcifications, spiculated or lobular masses, architectural distortion or other secondary signs of malignancy are mammographically apparent. Overall Assessment: Benign, BI-RAD 2 Management: Screening Mammogram of both breasts in 1 year. A negative mammogram report should not preclude additional follow up of suspicious palpable abnormalities. Patient should continue monthly self breast exam. A clinical breast exam by your physician is recommended on an annual basis and results should be correlated with mammographic findings. Note on Casi scores and lifetime risk: 1. A Casi score greater than 3% is considered moderate risk. If this is the case, consider specialist referral to assess eligibility for a risk reducing agent. 2. If overall lifetime risk for the development of breast cancer is 20% or higher, the patient may qualify for future screening with alternating mammogram and breast MRI. [facility], , 04/30/2024 11:36 AM. Electronically signed and approved by: Fernando Gillette D.O. Radiologis
== END | disposition home or self-care (01) ==
LOC: RADMAMWWP 06:59
PROVIDERS: ATTEND Internal Medicine
DX: Z12.31 Encounter for screening mammogram for malignant neoplasm of breast
CPT/HCPCS: 77063; 77067

== ENCOUNTER → 2025-02-04 | Outpatient (CLI) | payer MEDICARE ==
--- NOTE | 2025-02-04 14:01 | XR ---
EXAMINATION TYPE: XR chest 2V DATE OF EXAM: 02/04/2025 12:26 PM COMPARISON: Chest radiographs from 06/05/2013. CLINICAL INDICATION: Female, 74 years old with history of R50.9 COUGH; [facility] TECHNIQUE: XR chest 2V Frontal and lateral views of the chest. FINDINGS: Lungs/Pleura: Left lower lobe airspace opacity seen on lateral view. There is no evidence of pleural effusion, focal consolidation, or pneumothorax. Pulmonary vascularity: Unremarkable. Heart/mediastinum: Cardiomediastinal silhouette is unremarkable. Musculoskeletal: No acute osseous pathology. Left proximal shoulder fixation hardware. IMPRESSION: Left lower lobe airspace opacities on lateral view correlate for pneumonia [facility], , 02/04/2025 1:59 PM
== END | disposition home or self-care (01) ==
LOC: RADXRMAIN 12:07
PROVIDERS: ATTEND Internal Medicine
DX: R91.8 Other nonspecific abnormal finding of lung field (principal); R05.9 Cough, unspecified
CPT/HCPCS: 71046

== ENCOUNTER → 2025-03-08 | Outpatient (CLI) | payer MEDICARE ==
[2025-03-08 11:02] LABS: African American GFR (CKD) >90 (>60 ml/min/1.73 sqM); Blood Urea Nitrogen 19 mg/dL (7-17); Non-African American GFR(CKD) >90 (>60 ml/min/1.73 sqM)
--- NOTE | 2025-03-08 15:44 | CT ---
EXAMINATION TYPE: CT chest w con DATE OF EXAM: 03/08/2025 COMPARISON: None CLINICAL INDICATION: Female, 74 years old with history of R06.02 SOB; PH[facility], SOB, chronic cough. TECHNIQUE: CT scan of the chest is performed with IV Contrast, patient injected with 100 ml mL of Isovue 300. M IP Images are created on CT scanner and reviewed. 3D reconstructed images are created on an [employer] workstation and reviewed. CT DLP: 440 mGycm Automated exposure control for dose reduction was used. FINDINGS: LUNGS: Changes of COPD with coarsened interstitium and findings suggestive of chronic pulmonary fibro sis. Subsegmental areas of consolidation are more typical of atelectasis or scarring. Subpleural pulm onary micronodules are seen bilaterally 2 small to characterize. MEDIASTINUM: Aorta of normal caliber. Moderate coronary artery calcification. Mild cardiomegaly. No p athologic lymphadenopathy. Short axis less than 1 cm shotty lymph nodes are seen. No sizable pericard ial effusion. There is a moderate-sized hiatal hernia with findings suggestive previous gastric surge ry. OTHER: Hepatic steatosis. Post cholecystectomy. IVC filter noted. Simple appearing right renal cyst. Nonspecific thickening of the left adrenal gland. 2 small to characterize. Diverticulosis of the col on. Degenerative changes of the spine. Generalized demineralization with a mild superior endplate chr onic appearing compression deformity lower thoracic spine. IMPRESSION: 1. Findings suggestive of COPD. Suspect fibrotic changes at the lung bases. No acute pneumonia or CHF . 2. Moderate hiatal hernia. 3. Bilateral pulmonary micronodules too small to characterize but likely benign. Recommend 12 month f ollow-up according to Fleischner Society guidelines. Follow-up recommendations for incidental pulmonary nodules are per [employer]ischner?s [place] [employer] or [place] [employer]. [facility], , 03/08/2025 3:41 PM
== END | disposition home or self-care (01) ==
LOC: RADCTMAIN 09:34
PROVIDERS: ATTEND Internal Medicine
DX: K44.9 Diaphragmatic hernia without obstruction or gangrene (principal); R91.8 Other nonspecific abnormal finding of lung field
CPT/HCPCS: 82565; 84520; 71260; 36415; Q9967